=== PATIENT | male | born 1955 | race Caucasian/White ===

== ENCOUNTER 2016-12-11 12:10 | Day surgery (SDC) | payer OTHER ==
[~2016-12-11] VITALS: Ht 175.3 cm; Wt 94.1 kg
[2016-12-11 12:48] VITALS: Ht 175.3 cm; Wt 94.1 kg
[2016-12-11] MEDS ORDERED: COU75 PO (13:00)
[2016-12-11] MEDS ORDERED: ALBU8.5H3 INH (13:00)
[2016-12-11] MEDS ORDERED: PROPOFOL 20 ML ONE (13:50)
[2016-12-11 13:54] VITALS: BP 134/86; PULSE 72; RESP 12
--- NOTE | 2016-12-11 14:24 | OPPN ---
Date/Time of Note Date/Time of Note DATE: 12/11/16 TIME: 14:22 Operative Report Preoperative Diagnosis Screening colonoscopy Postoperative Diagnosis Sigmoid polyp Internal hemorrhoids Operation/Procedure Performed Colonoscopy and biopsy Provider: ARACELI WOODALL MD Anesthesia Type: MAC Estimated blood loss: none Transfusion Required: no Specimens Sigmoid polyp Grafts/Implants: none Complications: no ARACELI WOODALL MD Dec 11, 2016 14:24
[2016-12-11 14:48] VITALS: BP 130/83; PULSE 72; RESP 14
--- NOTE | 2016-12-12 06:34 | GILP ---
DATE OF PROCEDURE: 12/11/2016 PROCEDURE PERFORMED: Colonoscopy and biopsy. SURGEON: Efrain Marquez MD PREOPERATIVE DIAGNOSIS: Screening colonoscopy. POSTOPERATIVE DIAGNOSES: 1. Colonoscopy all the way to the cecum. 2. Small sigmoid colon polyp was removed using the biopsy forceps. 3. Internal hemorrhoids. INDICATION: Mr. Gt Roland is a 61-year-old male patient who was scheduled for screening colonoscopy. The procedure and possible complications were well explained to the patient. The patient understood and consented to the procedure. DESCRIPTION OF PROCEDURE: Under the influence of anesthesia, the colonoscope was carefully introduced in the rectum. Under direct vision ,it was advanced all the way to the cecum. FINDINGS: Small sigmoid colon polyp was removed using the biopsy forceps. Internal hemorrhoids. He tolerated the procedure very well, and there was no complication from the procedure. At the end of procedure, he was awake with stable vital signs and he was discharged home in the care of his family. IMPRESSION: Please see postop diagnoses. PLAN: 1. Await histopathology report. 2. Next screening colonoscopy in 10 years. Dictated By: MD YOU Rahman/[email or web address]/[email or web address] /Document#: [id number]
== END 2016-12-11 15:26 | disposition home or self-care (01) ==
LOC: GIL 12:10
PROVIDERS: ATTEND Internal Medicine Gastroenterology
DX: Z12.11 Encounter for screening for malignant neoplasm of colon (principal); D12.5 Benign neoplasm of sigmoid colon; K64.8 Other hemorrhoids
CPT/HCPCS: 88305